=== PATIENT | male | born 1980 | race Native Hawaiian/Other Pacific Islander ===

== ENCOUNTER 2022-09-08 17:37 | Emergency (ER) | payer BC ==
[~2022-09-08] VITALS: Ht 188 cm; Wt 104.3 kg
[2022-09-08 17:37] VITALS: TEMP 98.7
[2022-09-08 19:05] VITALS: BP 135/84
== END 2022-09-08 19:05 | disposition home or self-care (01) ==
LOC: ED 17:37
DX: R03.0 Elevated blood-pressure reading, without diagnosis of hypertension (principal)
CPT/HCPCS: 99283